=== PATIENT | male | born 1975 | race Caucasian/White ===

== ENCOUNTER 2020-10-02 08:53 | Emergency (ER) | payer MEDICAID, OTHER ==
[~2020-10-02] VITALS: Ht 172.7 cm; Wt 72.6 kg
[2020-10-02 09:49] VITALS: BP 141/86
[2020-10-02] MEDS ORDERED: methylPREDNISolone SOD SUCC 125 MG/2 ML VL IM ONE (10:00)
[2020-10-02] MEDS ORDERED: KETOROLAC TROMETH 60MG/2ML VIAL IM ONE (10:00)
== END 2020-10-02 10:37 | disposition home or self-care (01) ==
LOC: ER 08:53 → EDBD 08:53 → ER 10:35
DX: M10.9 Gout, unspecified (principal); M79.674 Pain in right toe(s); F17.210 Nicotine dependence, cigarettes, uncomplicated; Z88.1 Allergy status to other antibiotic agents
CPT/HCPCS: 96372; 99284; J1885; J2930

== ENCOUNTER 2020-10-12 07:07 | Emergency (ER) | payer MEDICAID ==
[~2020-10-12] VITALS: Ht 172.7 cm; Wt 74.8 kg
[2020-10-12 07:24] VITALS: BP 118/74
[2020-10-12] MEDS ORDERED: KETOROLAC TROMETH 60MG/2ML VIAL IM ONE (07:45)
[2020-10-12] MEDS ORDERED: methylPREDNISolone SOD SUCC 125 MG/2 ML VL IM ONE (07:45)
== END 2020-10-12 08:08 | disposition home or self-care (01) ==
LOC: ER 07:07
DX: M10.9 Gout, unspecified (principal); F17.210 Nicotine dependence, cigarettes, uncomplicated; Z88.1 Allergy status to other antibiotic agents
CPT/HCPCS: 96372; 99284; J1885; J2930